=== PATIENT | male | born 1965 | race Caucasian/White ===

== ENCOUNTER 2018-03-17 19:48 | Emergency (ER) | payer OTHER ==
[2018-03-17] MEDS: KETOROLAC 30 MG INJ IM (20:41)
[2018-03-17] MEDS: HYDROCODONE/APAP (5/325) TAB PO (20:41)
[2018-03-17 20:51] LABS: URINE PH (Dip) POC 5.5 (5.0-8.5)
[2018-03-17 20:51] LABS: URINE BLOOD (Dip) POC Negative (NEGATIVE); URINE GLUCOSE (Dip) POC Negative (NEGATIVE); URINE KETONES (Dip) POC Trace (NEGATIVE); URINE LEUKOCYTE EST (Dip) POC Negative (NEGATIVE); URINE NITRITE (Dip) POC Negative (NEGATIVE); URINE TOTAL PROTEIN POC 1+ (NEGATIVE)
== END 2018-03-17 21:14 | disposition home or self-care (01) ==
LOC: FTE 19:48
DX: M54.9 Dorsalgia, unspecified (principal); M79.671 Pain in right foot; E11.9 Type 2 diabetes mellitus without complications
CPT/HCPCS: 81003; 82962; 96372; 99284-25